=== PATIENT | male | born 1960 | race Caucasian/White ===

== ENCOUNTER → 2024-05-20 | Outpatient (CLI) | payer OTHER ==
--- NOTE | 2024-05-20 14:23 | MR ---
EXAMINATION TYPE: MR knee RT wo con DATE OF EXAM: 05/20/2024 COMPARISON: None HISTORY: Lump anterior to patella, no real pain, did have warm feeling at site of lump 2 weeks ago, x4 years TECHNIQUE: Multiplanar, multisequence imaging of the right knee is performed without IV contrast. FINDINGS: There is a complex 2.9 x 1.6 x 3.3 cm multiloculated cystic mass in the prepatellar soft tissues cons istent with prepatellar bursitis. There is moderate to marked edema in the subcutaneous soft tissues in the anterior knee. There is thinning of the articular cartilage of the medial patellar facet with scattered subchondral cystic changes consistent with moderate osteoarthritis. There is mild thinning of the articular carti lages in minimal hypertrophic spurring of the medial lateral compartment and there are mild subchondr al changes in the medial aspect of the posterior lateral tibial plateau. There is no bone contusion or fracture. The cruciate and collateral ligaments are intact. There is no meniscal injury. The quadriceps and patellar tendons are intact. IMPRESSION: 1. Marked prepatellar bursitis and soft tissue edema. 2. Moderate osteoarthritic change of patellofemoral compartment and mild osteoarthritic change of the medial and lateral compartments. 3. No ligamentous or meniscal injury.
== END | disposition home or self-care (01) ==
LOC: RADMRIMAIN 13:06
PROVIDERS: ATTEND Orthopaedic Surgery
DX: M17.11 Unilateral primary osteoarthritis, right knee (principal); M70.41 Prepatellar bursitis, right knee; R60.0 Localized edema